=== PATIENT | female | born 1965 | race African-American/Black ===

== ENCOUNTER 2022-04-16 16:22 | Inpatient (IN) | payer MEDICAID ==
[~2022-04-16] VITALS: Ht 162.6 cm; Wt 83.9 kg
[2022-04-16] MEDS ORDERED: ONDANSETRON HCL 4MG/2ML INJ IV ONE (16:45)
[2022-04-16] MEDS ORDERED: MORPHINE SULFATE 4 MG/ML CPJ (NOT FOR IM USE) IV ONE (16:45)
[2022-04-16] MEDS ORDERED: SODIUM CHLORIDE 0.9% 1,000 ML IV ONE (16:45)
[2022-04-16] MEDS ORDERED: CEFTRIAXONE 1 G PREMIX 50 ML IV NR (18:30)
[2022-04-16] MEDS ORDERED: METRONIDAZOLE 500 MG PREMIX 100 ML IV NR (18:30)
[2022-04-16] MEDS ORDERED: HYDROMORPHONE HCL/PF 2MG/ML CPJ IV ONE ×2 (19:30→20:30)
[2022-04-16 23:36] LABS: INR 1.2
[2022-04-16 23:37] LABS: HEMATOCRIT. 52.4 % (36.0-48.0); HEMOGLOBIN. 16.2 g/dL (12.0-16.0); MEAN CORPUSCULAR VOLUME 81.1 fL (81.0-99.0); MEAN PLATELET VOLUME 8.4 fl (7.4-10.4); PLATELET 347 x1000/uL (130-400); RED BLOOD CELL COUNT 6.46 mill/uL (4.2-5.4); RED CELL DISTRIBUTION WIDTH 17.7 % (11.6-14.6)
[2022-04-16 23:38] LABS: CHLORIDE 106 mEq/L (98-107)
[2022-04-17] MEDS ORDERED: HYDROMORPHONE HCL/PF 2MG/ML CPJ IV ONE (00:15)
[2022-04-17 01:17] LABS: PLATELET ESTIMATE NORMAL
[2022-04-17] MEDS ORDERED: MORPHINE SULFATE 2 MG/ML CPJ (NOT FOR IM USE) IV PRN (01:30)
[2022-04-17] MEDS ORDERED: DIATR MEGLU/DIATRIZOATE SOLN 30ML ONE (08:24)
[2022-04-17] MEDS ORDERED: ONDANSETRON HCL 4MG/2ML INJ IV PRN (10:15)
[2022-04-17] MEDS ORDERED: NALOXONE HCL 0.4MG/ML VIAL IV PRN (10:30)
[2022-04-17] MEDS: DEXT 5%/0.45% NACL 1000ML 1,000 ML IV SCH (10:59)
[2022-04-17] MEDS: PIPERACILLIN/TAZ 3.375G PREMIX 50 ML IV SCH ×2 (10:59→18:26)
[2022-04-17 15:00] LABS: CLARITY URINE CLEAR (CLEAR); COLOR URINE YELLOW (YELLOW); KETONES URINE NEGATIVE (NEGATIVE); LEUKOCYTE ESTERASE URINE NEGATIVE (NEGATIVE); NITRITE URINE NEGATIVE (NEGATIVE); OCCULT BLOOD URINE NEGATIVE (NEGATIVE); PH URINE 5.5 (4.5-8.0); PROTEIN URINE NEGATIVE (NEGATIVE); SPECIFIC GRAVITY URINE 1.015 (1.005-1.030); UROBILINOGEN URINE 0.2 E.U./dL (0.2-1.0)
[2022-04-17 20:00] VITALS: BP 90/61
[2022-04-17] MEDS: HYDROCODONE/ACETAMINOPHEN 10/325MG TABLET PO PRN (21:44)
[2022-04-18] VITALS (7 sets, daily range): BP systolic 94–120; BP diastolic 55–85
[2022-04-18] MEDS: DEXT 5%/0.45% NACL 1000ML 1,000 ML IV SCH ×2 (01:33→14:50)
[2022-04-18] MEDS: PIPERACILLIN/TAZOBACTAM 3.375 G in DEXTROSE 5% WATER 50 ML IV SCH ×3 (06:24→22:33)
[2022-04-18] MEDS: HYDROCODONE/ACETAMINOPHEN 10/325MG TABLET PO PRN ×4 (06:24→22:34)
[2022-04-18 06:58] LABS: BASOPHILS % 0.4 % (0.0-2.0); EOSINOPHILS % 1.2 % (0.0-5.0); HEMATOCRIT. 48.2 % (36.0-48.0); HEMOGLOBIN. 15.2 g/dL (12.0-16.0); LYMPHOCYTES % 18.3 % (20.0-50.0); MEAN CORPUSCULAR HEMOGLOBIN 25.7 pg (28.0-32.0); MEAN CORPUSCULAR VOLUME 81.6 fL (81.0-99.0); MEAN PLATELET VOLUME 8.5 fl (7.4-10.4); MONOCYTES % 9.9 % (2.0-8.0); NEUTROPHILS % 70.2 % (40.0-76.0); PLATELET 283 x1000/uL (130-400); RED BLOOD CELL COUNT 5.91 mill/uL (4.2-5.4); RED CELL DISTRIBUTION WIDTH 18.1 % (11.6-14.6)
[2022-04-18 08:43] LABS: CHLORIDE 110 mEq/L (98-107)
[2022-04-18] MEDS: PANTOPRAZOLE SODIUM 40 MG/VIAL IV SCH (09:11)
[2022-04-18] MEDS ORDERED: VALS160T28 MT (09:55)
[2022-04-18] MEDS ORDERED: PRED5TAB MT (09:55)
[2022-04-18] MEDS ORDERED: RIVA20TA MT (09:59)
[2022-04-18] MEDS ORDERED: AMLO5TAB88 MT (09:59)
[2022-04-18] MEDS ORDERED: DIGO125T20 MT (09:59)
[2022-04-18] MEDS ORDERED: METH-371 MT (09:59)
[2022-04-18] MEDS ORDERED: PROP60TA18 MT (09:59)
[2022-04-18] MEDS ORDERED: FAMO20TA8 MT (10:01)
[2022-04-18] MEDS ORDERED: HYDR-4009 MT (10:01)
[2022-04-18] MEDS: ENOXAPARIN 80MG/0.8ML SYR SUBCUT SCH ×2 (12:46→22:33)
[2022-04-18] MEDS: PREDNISONE 5MG TABLET PO SCH (12:46)
[2022-04-18] MEDS: METHIMAZOLE 5MG TABLET PO SCH (17:41)
[2022-04-19] VITALS (7 sets, daily range): BP systolic 104–146; BP diastolic 67–86
[2022-04-19] MEDS: DEXT 5%/0.45% NACL 1000ML 1,000 ML IV SCH (02:15)
[2022-04-19] MEDS: HYDROCODONE/ACETAMINOPHEN 10/325MG TABLET PO PRN ×3 (05:57→14:13)
[2022-04-19] MEDS: PIPERACILLIN/TAZOBACTAM 3.375 G in DEXTROSE 5% WATER 50 ML IV SCH ×2 (06:39→14:10)
[2022-04-19] MEDS: PANTOPRAZOLE SODIUM 40 MG/VIAL IV SCH (09:49)
[2022-04-19] MEDS: METHIMAZOLE 5MG TABLET PO SCH ×2 (09:50→17:48)
[2022-04-19] MEDS: PREDNISONE 5MG TABLET PO SCH (09:50)
[2022-04-19] MEDS: ENOXAPARIN 80MG/0.8ML SYR SUBCUT SCH (09:50)
== END 2022-04-19 19:45 | disposition home or self-care (01) | DRG 254 ==
LOC: ER 16:22 → MICUSO 04-17 00:06 → EDBEDREQ 04-17 00:09 → 6EST 04-17 18:55
PROVIDERS: ADMIT Internal Medicine; ATTEND Internal Medicine
DX: K43.3 Parastomal hernia with obstruction, without gangrene (principal); E03.9 Hypothyroidism, unspecified; I10 Essential (primary) hypertension; I48.91 Unspecified atrial fibrillation; Z93.3 Colostomy status; Z91.041 Radiographic dye allergy status; Z88.8 Allergy status to other drugs, medicaments and biological substances; Z72.0 Tobacco use
CPT/HCPCS: 36415; 74018; 74176; 80048; 80053; 81003; 83605; 85025; 86850; 86900; 93005; 99285; C9113; J0696; J1170; J1650; J2270; J2405; J2543; J3490; J7030; J7060; J7512; Q9963